=== PATIENT | male | born 1995 | race Caucasian/White ===

== ENCOUNTER 2016-10-07 19:36 | Emergency (ER) | payer BC, OTHER ==
[~2016-10-07] VITALS: Ht 193 cm; Wt 85.0 kg
[2016-10-07 19:43] VITALS: BP 123/74; PULSE 84; RESP 20; TEMP 98.2; O2SAT 99
--- NOTE | 2016-10-07 20:10 | PD ---
HPI Chief Complaint: Psychiatric Symptoms Time Seen by Provider: 20:10 Travel History International Travel<30 days: No Contact w/Intl Traveler<30days: No Traveled to known affect area: No History of Present Illness HPI 21-year-old male presents to the ED under Estrada act for psychiatric evaluation. According to Estrada act paperwork the patient made suicidal threats to his mother. at work also states that the patient was found walking down the railroad tracks and told the officers that he was "waiting for a train." On presentation he denies suicidal or homicidal ideation. He did state that he's been feeling depressed and was trying to talk to his mother about some of his emotional issues. He states that she became angry and he left at that time. He denies previous psychiatric diagnoses, takes no daily medications. Endorses chronic shoulder pain, no worse today. Otherwise no somatic complaints. Endorses smoking cigarettes and marijuana, denies illicit drugs. PFSH Past Medical History Diminished Hearing: No Respiratory: Yes (ASTHMA) Immunizations Current: Yes Social History Alcohol Use: No Tobacco Use: Yes Substance Use: Yes Allergies-Medications (Allergen,Severity, Reaction): Coded Allergies: Cultivated Oat Pollen (Verified Allergy, Mild, 07/31/16) Dust (Verified Allergy, Mild, 07/31/16) [place] Nut (Verified Allergy, Mild, 07/31/16) Reported Meds & Prescriptions Reported Meds & Active Scripts Active No Active Prescriptions or Reported Medications Review of Systems Except as stated in HPI: all other systems reviewed are Neg Physical Exam Narrative GENERAL: Well-nourished, well-developed white male in no acute distress. SKIN: Warm and dry. HEAD: Normocephalic. EYES: No scleral icterus. No injection or drainage. NECK: Supple, trachea midline. No JVD or lymphadenopathy. CARDIOVASCULAR: Regular rate and rhythm without murmurs, gallops, or rubs. STP and radial pulses bilaterally. RESPIRATORY: Breath sounds clear and equal bilaterally. No accessory muscle use. GASTROINTESTINAL: Abdomen soft, non-tender, nondistended. MUSCULOSKELETAL: No cyanosis, or edema. patient is ambulatory, moves extremities spontaneously. BACK: Nontender without obvious deformity. No CVA tenderness. Data Data Last Documented VS Vital Signs Date Time Temp Pulse Resp B/P Pulse Ox O2 Delivery O2 Flow Rate FiO2 10/08/16 08:35 75 18 120/68 Room Air 10/08/16 03:07 97.7 97 Orders Complete Blood Count With Diff (10/07/16 20:15) Comprehensive Metabolic Panel (10/07/16 20:15) Drug Screen, Random Urine (10/07/16 20:15) Alcohol (Ethanol) (10/07/16 20:15) Psych Screen (10/07/16 20:15) Labs Laboratory Tests Test 10/07/16 10/07/16 20:29 20:30 White Blood Count 10.3 TH/MM3 Red Blood Count 5.14 MIL/MM3 Hemoglobin 15.7 GM/DL Hematocrit 45.2 % Mean Corpuscular Volume 88.0 FL Mean Corpuscular Hemoglobin 30.4 PG Mean Corpuscular Hemoglobin 34.6 % Concent Red Cell Distribution Width 12.5 % Platelet Count 240 TH/MM3 Mean Platelet Volume 6.9 FL Neutrophils (%) (Auto) 66.0 % Lymphocytes (%) (Auto) 23.5 % Monocytes (%) (Auto) 7.0 % Eosinophils (%) (Auto) 2.8 % Basophils (%) (Auto) 0.7 % Neutrophils # (Auto) 6.8 TH/MM3 Lymphocytes # (Auto) 2.4 TH/MM3 Monocytes # (Auto) 0.7 TH/MM3 Eosinophils # (Auto) 0.3 TH/MM3 Basophils # (Auto) 0.1 TH/MM3 CBC Comment DIFF FINAL Differential Comment Sodium Level 136 MEQ/L Potassium Level 3.5 MEQ/L Chloride Level 100 MEQ/L Carbon Dioxide Level 27.3 MEQ/L Anion Gap 9 MEQ/L Blood Urea Nitrogen 7 MG/DL Creatinine 0.73 MG/DL Estimat Glomerular Filtration 136 ML/MIN Rate Random Glucose 83 MG/DL Calcium Level 8.7 MG/DL Total Bilirubin 0.3 MG/DL Aspartate Amino Transf 20 U/L (AST/SGOT) Alanine Aminotransferase 38 U/L (ALT/SGPT) Alkaline Phosphatase 69 U/L Total Protein 7.9 GM/DL Albumin 4.2 GM/DL Ethyl Alcohol Level 26 MG/DL Urine Opiates Screen NEG Urine Barbiturates Screen NEG Urine Amphetamines Screen NEG Urine Benzodiazepines Screen NEG Urine Cocaine Screen NEG Urine Cannabinoids Screen POS MDM Medical Decision Making Medical Screen Exam Complete: Yes Emergency Medical Condition: Yes Differential Diagnosis Adjustment disorder versus anxiety versus bipolar versus depression versus dementia versus electrolyte disorder versus malingering versus mood disorder versus ODD versus psychosis versus PTSD versus schizophrenia versus schizoaffective disorder versus substance-induced mood disorder versus other Narrative Course 21-year-old male presents to the ED under Sean for psychiatric evaluation. Estrada act states that the patient made suicidal threats to his mother. Patient denies suicidal or homicidal ideation on presentation. He does endorse increased depression lately. He states that he was attempting to speak with his mother about these issues and she called 911.complaints of chronic shoulder pain, otherwise no somatic complaints. Vitals and exam are reassuring. Basic labs ordered. Patient transferred to a medical pod. Please see oncoming providers note for disposition. Anticipate medical clearance for psychiatric evaluation. Diagnosis Primary Impression: Medical clearance for psychiatric admission Scripts No Active Prescriptions or Reported Meds Brooke Stoll Oct 07, 2016 20:10
[2016-10-07 20:44] LABS: AUTOMATED NEUTROPHIL # 6.8 TH/MM3 (1.8-7.7); BASOPHIL # 0.1 TH/MM3 (0-0.2); BASOPHIL % 0.7 % (0.0-2.0); EOSINOPHIL # 0.3 TH/MM3 (0-0.4); EOSINOPHIL % 2.8 % (0.0-4.0); HEMATOCRIT 45.2 % (39.0-51.0); HEMO FLAGS DIFF FINAL; LYMPH % 23.5 % (9.0-44.0); LYMPHOCYTE # 2.4 TH/MM3 (1.0-4.8); MEAN CORPUSCULAR HEMOGLOBIN 30.4 PG (27.0-34.0); MEAN CORPUSCULAR HGB CONC 34.6 % (32.0-36.0); PLATELET COUNT 240 TH/MM3 (150-450); RED BLOOD COUNT 5.14 MIL/MM3 (4.50-5.90); RED CELL DISTRIBUTION WIDTH 12.5 % (11.6-17.2); WHITE BLOOD COUNT 10.3 TH/MM3 (4.0-11.0)
[2016-10-07 20:51] LABS: AMPHETAMINE, URINE NEG (NEG); BARBITURATES, URINE NEG (NEG); COCAINE, URINE NEG (NEG)
[2016-10-07 21:03] LABS: ANION GAP 9 MEQ/L (5-15)
[2016-10-07 21:06] LABS: ALKALINE PHOSPHATASE 69 U/L (45-117); ALT (GPT) 38 U/L (12-78); AST (GOT) 20 U/L (15-37); BICARBONATE 27.3 MEQ/L (21.0-32.0); BLOOD UREA NITROGEN 7 MG/DL (7-18); CHLORIDE 100 MEQ/L (98-107); GLOMERULAR FILTRATION RATE 136 ML/MIN (>89); POTASSIUM 3.5 MEQ/L (3.5-5.1); SODIUM (NA) 136 MEQ/L (136-145); TOTAL BILIRUBIN ADULT 0.3 MG/DL (0.2-1.0)
--- NOTE | 2016-10-08 00:06 | PD ---
Physical Exam Date Seen by Provider: Oct 08, 2016 Time Seen by Provider: 00:05 Narrative Accepted in transfer of care from [place] for medical clearance GENERAL: Well-developed well-nourished male in no acute distress no respiratory distress; GCS 15 SKIN: Warm and dry. HEAD: Normocephalic. EYES: No scleral icterus. No injection or drainage. NECK: Supple, trachea midline. No JVD or lymphadenopathy. CARDIOVASCULAR: Regular rate and rhythm without murmurs, gallops, or rubs. RESPIRATORY: Breath sounds equal bilaterally. No accessory muscle use. GASTROINTESTINAL: Abdomen soft, non-tender, nondistended. MUSCULOSKELETAL: No cyanosis, or edema. BACK: Nontender without obvious deformity. No CVA tenderness. Data Data Last Documented VS Vital Signs Date Time Temp Pulse Resp B/P Pulse Ox O2 Delivery O2 Flow Rate FiO2 10/08/16 08:35 75 18 120/68 Room Air 10/08/16 03:07 97.7 97 Orders Complete Blood Count With Diff (10/07/16 20:15) Comprehensive Metabolic Panel (10/07/16 20:15) Drug Screen, Random Urine (10/07/16 20:15) Alcohol (Ethanol) (10/07/16 20:15) Psych Screen (10/07/16 20:15) Labs Laboratory Tests Test 10/07/16 10/07/16 20:29 20:30 White Blood Count 10.3 TH/MM3 Red Blood Count 5.14 MIL/MM3 Hemoglobin 15.7 GM/DL Hematocrit 45.2 % Mean Corpuscular Volume 88.0 FL Mean Corpuscular Hemoglobin 30.4 PG Mean Corpuscular Hemoglobin 34.6 % Concent Red Cell Distribution Width 12.5 % Platelet Count 240 TH/MM3 Mean Platelet Volume 6.9 FL Neutrophils (%) (Auto) 66.0 % Lymphocytes (%) (Auto) 23.5 % Monocytes (%) (Auto) 7.0 % Eosinophils (%) (Auto) 2.8 % Basophils (%) (Auto) 0.7 % Neutrophils # (Auto) 6.8 TH/MM3 Lymphocytes # (Auto) 2.4 TH/MM3 Monocytes # (Auto) 0.7 TH/MM3 Eosinophils # (Auto) 0.3 TH/MM3 Basophils # (Auto) 0.1 TH/MM3 CBC Comment DIFF FINAL Differential Comment Sodium Level 136 MEQ/L Potassium Level 3.5 MEQ/L Chloride Level 100 MEQ/L Carbon Dioxide Level 27.3 MEQ/L Anion Gap 9 MEQ/L Blood Urea Nitrogen 7 MG/DL Creatinine 0.73 MG/DL Estimat Glomerular Filtration 136 ML/MIN Rate Random Glucose 83 MG/DL Calcium Level 8.7 MG/DL Total Bilirubin 0.3 MG/DL Aspartate Amino Transf 20 U/L (AST/SGOT) Alanine Aminotransferase 38 U/L (ALT/SGPT) Alkaline Phosphatase 69 U/L Total Protein 7.9 GM/DL Albumin 4.2 GM/DL Ethyl Alcohol Level 26 MG/DL Urine Opiates Screen NEG Urine Barbiturates Screen NEG Urine Amphetamines Screen NEG Urine Benzodiazepines Screen NEG Urine Cocaine Screen NEG Urine Cannabinoids Screen POS MDM Medical Record Reviewed: Yes Supervised Visit with NOELLE: Yes Interpretation(s) Laboratory Tests Test 10/07/16 10/07/16 20:29 20:30 White Blood Count 10.3 TH/MM3 Red Blood Count 5.14 MIL/MM3 Hemoglobin 15.7 GM/DL Hematocrit 45.2 % Mean Corpuscular Volume 88.0 FL Mean Corpuscular Hemoglobin 30.4 PG Mean Corpuscular Hemoglobin 34.6 % Concent Red Cell Distribution Width 12.5 % Platelet Count 240 TH/MM3 Mean Platelet Volume 6.9 FL Neutrophils (%) (Auto) 66.0 % Lymphocytes (%) (Auto) 23.5 % Monocytes (%) (Auto) 7.0 % Eosinophils (%) (Auto) 2.8 % Basophils (%) (Auto) 0.7 % Neutrophils # (Auto) 6.8 TH/MM3 Lymphocytes # (Auto) 2.4 TH/MM3 Monocytes # (Auto) 0.7 TH/MM3 Eosinophils # (Auto) 0.3 TH/MM3 Basophils # (Auto) 0.1 TH/MM3 CBC Comment DIFF FINAL Differential Comment Sodium Level 136 MEQ/L Potassium Level 3.5 MEQ/L Chloride Level 100 MEQ/L Carbon Dioxide Level 27.3 MEQ/L Anion Gap 9 MEQ/L Blood Urea Nitrogen 7 MG/DL Creatinine 0.73 MG/DL Estimat Glomerular Filtration 136 ML/MIN Rate Random Glucose 83 MG/DL Calcium Level 8.7 MG/DL Total Bilirubin 0.3 MG/DL Aspartate Amino Transf 20 U/L (AST/SGOT) Alanine Aminotransferase 38 U/L (ALT/SGPT) Alkaline Phosphatase 69 U/L Total Protein 7.9 GM/DL Albumin 4.2 GM/DL Ethyl Alcohol Level 26 MG/DL Urine Opiates Screen NEG Urine Barbiturates Screen NEG Urine Amphetamines Screen NEG Urine Benzodiazepines Screen NEG Urine Cocaine Screen NEG Urine Cannabinoids Screen POS Differential Diagnosis Please refer to previous provider's dictation Narrative Course Patient here for evaluation of possible suicidal ideation; lab values are normal range; patient is cooperative denies any suicidal ideation: Patient is medically cleared Diagnosis Primary Impression: Medical clearance for psychiatric admission Scripts No Active Prescriptions or Reported Meds Melody Cabral MD Oct 08, 2016 00:06
[2016-10-08 03:07] VITALS: BP 116/63; PULSE 80; RESP 18; TEMP 97.7; O2SAT 97
[2016-10-08 06:12] VITALS: BP 120/68; PULSE 75; RESP 18
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
[2016-10-08 08:35] VITALS: BP 120/68; PULSE 75; RESP 18
== END 2016-10-08 09:08 | disposition home or self-care (01) ==
LOC: NEPC 19:36 → NEPJ 10-08 09:08
DX: F12.10 Cannabis abuse, uncomplicated (principal)
CPT/HCPCS: 80053; 80307; 80320; 85025; 99283